=== PATIENT | male | born 1995 | race American Indian/Alaskan Native ===

== ENCOUNTER 2021-04-10 13:07 | Emergency (ER) | payer SELFPAY ==
[2021-04-10 13:45] VITALS: BP 132/86
--- NOTE | 2021-04-10 14:09 | Emergency Department Report ---
Chief Complaint: Urogenital-Male Stated Complaint: BURNING WHEN URINATE - HPI History of Present Illness: 25-year-old -[place] male presents to the emergency room stating he had unprotected intercourse 3 days ago and now has white penile discharge. Patient reports he has some burning when he urinates. Denies any nausea vomiting or abdominal pain. Patient denies any fever or chills. Patient denies any testicular pain swelling. - Exam Vital Signs: Vital Signs 04/10/21 13:41 Temperature 99.2 F Pulse Rate 104 H Respiratory 18 Rate Blood Pressure 132/86 O2 Sat by Pulse 100 Oximetry Physical Exam: Patient is alert and oriented x3 no acute distress nontoxic in appearance Cardiac regular rate and rhythm no murmurs appreciated Lungs clear to auscultation bilateral Abdomen soft nontender nondistended Amatory without difficulties MSE screening note: Focused history and physical exam performed. Due to findings the following was ordered: 25-year-old -[place] male presents to the emergency room stating he had unprotected intercourse 3 days ago and now has white penile discharge. Patient reports he has some burning when he urinates. Denies any nausea vomiting or abdominal pain. Patient denies any fever or chills. Patient denies any testicular pain swelling. ED Disposition for MSE Disposition: DC-01 TO HOME OR SELFCARE Is pt being admited?: No Does the pt Need Aspirin: No Condition: Stable Additional Instructions: Recommend to follow-up at the [facility] urgent care or primary care clinic. You need to full STD work-up including HIV herpes hepatitis syphilis gonorrhea and chlamydia. Referrals: [facility] [Outside] - 3-5 Days [facility] [Outside] - 3-5 Days Forms: Work/School Release Form(ED)
== END 2021-04-10 14:40 | disposition home or self-care (01) ==
LOC: ED 13:07
DX: R36.9 Urethral discharge, unspecified (principal); R30.0 Dysuria
CPT/HCPCS: 99282